=== PATIENT | male | born 1965 | race Caucasian/White ===

== ENCOUNTER 2019-08-23 00:56 | Observation (INO) | payer BC ==
--- NOTE | 2019-08-23 01:12 | ER Document Report ---
ED General - General Chief Complaint: Chest Pain Stated Complaint: CHEST PAIN Time Seen by Provider: 08/23/19 01:06 - HPI Notes: This is a 54-year-old gentleman who presents today with a complaint of left- sided chest pain described as sharp, nonradiating that started about 2 hours prior to presentation. He also describes significant trouble breathing and nonproductive cough. He denies any fever or chills. He denies any trauma. Symptoms are worse with exertion. Patient was given aspirin and nitroglycerin per EMS without any significant change in his symptoms. - Related Data Allergies/Adverse Reactions: No Known Allergies Allergy (Unverified 08/23/19 04:20) Past Medical History - Social History Smoking Status: Never Smoker Frequency of alcohol use: None Drug Abuse: None Family History: Hypertension Review of Systems - Review of Systems Cardiovascular: Chest pain, Dyspnea. denies: Palpitations, Heart racing Respiratory: Cough, Short of breath -: Yes All other systems reviewed and negative Physical Exam - Vital signs Vitals: Temp Pulse Ox 99.0 F 91 L 08/23/19 01:19 08/23/19 01:19 Interpretation: Hypoxic, Tachypneic - General General appearance: Alert In distress: Moderate - Respiratory Respiratory status: Respiratory distress, Labored Chest status: Accessory muscle use Breath sounds: Normal, Decreased air movement, Rales, Rhonchi Chest palpation: Normal - Cardiovascular Rhythm: Regular Heart sounds: Normal auscultation Murmur: No - Abdominal Inspection: Normal Distension: No distension Bowel sounds: Normal Tenderness: Nontender Organomegaly: No organomegaly - Extremities General upper extremity: Normal inspection, Nontender, Normal color, Normal ROM, Normal temperature General lower extremity: Normal inspection, Nontender, Edema - There is minimal peripheral edema., Normal color, Normal ROM, Normal temperature, Normal weight bearing. No: Elaine's sign - Neurological Neuro grossly intact: Yes Cognition: Normal Orientation: AAOx4 Hero Coma Scale Eye Opening: Spontaneous Galvin Coma Scale Verbal: Oriented Galvin Coma Scale Motor: Obeys Commands Hero Coma Scale Total: 15 Speech: Normal Motor strength normal: LUE, RUE, LLE, RLE Sensory: Normal - Psychological Associated symptoms: Normal affect, Normal mood Course - Re-evaluation Re-evalutation: 08/23/19 01:11 Differential diagnosis includes pneumonia versus CHF versus COPD. Doubt acute coronary syndrome with hypoxia and tachypnea. Pulmonary embolus is also high my differential is chest x-ray does not give me a good explanation. EKG shows normal sinus rhythm at 99 bpm. PVCs. Nonspecific T wave changes. No acute injury pattern. 0230 Patient reevaluated. Patient is doing better. 08/23/19 04:12 Patient reevaluated. Patient is doing much better on BiPAP. Respiratory rate improved significantly. Sats improved. Labs, and imaging reviewed and disc ussed with patient and family. He also discussed pulmonary nodule. She is scheduled discussed with Dr. Arnold. Will admit for pneumonia. - Vital Signs Vital signs: Temp Pulse Resp BP Pulse Ox 99.0 F 17 97 08/23/19 01:19 08/23/19 04:15 08/23/19 04:15 - Laboratory Result Diagrams: 08/23/19 01:02 08/23/19 01:02 Laboratory results interpreted by me: 08/23/19 08/23/19 08/23/19 01:02 01:02 01:02 WBC 15.3 H Absolute Neuts (auto) 11.6 H Carbonic Acid 1.00 L ABG pCO2 33.1 L ABG pO2 50.7 L ABG O2 Saturation 87.8 L BUN 26 H Glucose 142 H Alkaline Phosphatase 131 H Critical Care Note - Critical Care Note Total time excluding time spent on procedures (mins): 60 Comments: Critical care time for reevaluation and management of acute respiratory distress and hypoxic respiratory failure. Discharge - Discharge Clinical Impression: Acute respiratory failure with hypoxia Pneumonia Qualifiers: Pneumonia type: due to unspecified organism Laterality: left Lung location: lower lobe of lung Qualified Code(s): J18.1 - Lobar pneumonia, unspecified organism Condition: Stable Disposition: ADMITTED INPATIENT Admitting Provider: Clayton (Hospitalist) Unit Admitted: Telemetry
[2019-08-23] MEDS ORDERED: MORPHINE SULFATE 10 MG/ML INJ IV ONE (01:19)
[2019-08-23] MEDS ORDERED: AZITHROMYCIN INJ 500 MG VIAL IV ONE (01:26)
[2019-08-23] MEDS ORDERED: CEFTRIAXONE 1 GM/D5W RTU 1 GM/50 ML RTUPB IV ONE (01:26)
[2019-08-23 01:30] LABS: ABSOLUTE BASOPHILS # (AUTO) 0.1 10^3/uL (0.0-0.2); ABSOLUTE EOSINOPHILS # (AUTO) 0.3 10^3/uL (0.0-0.6); ABSOLUTE LYMPHOCYTES (AUTO) 2.5 10^3/uL (0.5-4.7); ABSOLUTE MONOCYTES (AUTO) 0.9 10^3/uL (0.1-1.4); ABSOLUTE NEUT (AUTO) 11.6 10^3/uL (1.7-8.2); BASOPHILS % (AUTO) 0.6 % (0-2); EOSINOPHILS % (AUTO) 1.6 % (0-6); HEMATOCRIT 40.9 % (37.9-51.0); HEMOGLOBIN 13.6 g/dL (13.5-17.0); MEAN CORPUSCULAR HEMOGLOBIN 30.6 pg (27.0-33.4); MEAN CORPUSCULAR HGB CONC 33.2 g/dL (32.0-36.0); MEAN CORPUSCULAR VOLUME 92 fl (80-97); MONOCYTES % (AUTO) 5.7 % (3-13); PLATELET COUNT 270 10^3/uL (150-450); RED BLOOD COUNT 4.45 10^6/uL (4.35-5.55); RED CELL DISTRIBUTION WIDTH 13.5 % (11.5-14.0); SEGMENTED NEUTROPHILS % (AUTO) 76.1 % (42-78); TOTAL CELLS COUNTED % (AUTO) 100 %; WHITE BLOOD COUNT 15.3 10^3/uL (4.0-10.5)
--- NOTE | 2019-08-23 01:49 | RADIOLOGY REPORT (SQ) ---
EXAM DESCRIPTION: [facility]: XR CHEST 1 VIEW CLINICAL HISTORY: 54 years Male, dyspnea COMPARISON: None. FINDINGS: There is an ill-defined alveolar interstitial density in the left lower lung field, with slight blunting of left costophrenic angle. Right lung is clear. No pneumothorax. Mediastinum is within normal limits for this positioning. Bony structures are unremarkable. IMPRESSION: 1. Left lower lobe infiltrate, suboptimally visualized, but suspicious for pneumonia. If clinical findings are equivocal, consider upright PA and lateral radiographs to confirm left lower lobe infiltrate.
[2019-08-23 01:53] LABS: ALBUMIN 4.3 g/dL (3.5-5.0); ALKALINE PHOSPHATASE 131 U/L (38-126); ANION GAP 10 (5-19); ASPARTATE AMINO TRANSFERASE 29 U/L (17-59); BILIRUBIN,DIRECT 0.1 mg/dL (0.0-0.4); BILIRUBIN,TOTAL 0.5 mg/dL (0.2-1.3); BLOOD UREA NITROGEN 26 mg/dL (7-20); CALCIUM 9.3 mg/dL (8.4-10.2); CARBON DIOXIDE 26 mmol/L (22-30); CHLORIDE 105 mmol/L (98-107); CREATINE KINASE 70 U/L (55-170); GLUCOSE 142 mg/dL (75-110); POTASSIUM 4.1 mmol/L (3.6-5.0); TOTAL PROTEIN 7.7 g/dL (6.3-8.2)
[2019-08-23 01:55] LABS: ARTERIAL BLOOD FIO2 4L; ARTERIAL BLOOD HCO3 22.3 mmol/L (20-24); ARTERIAL BLOOD O2 SATURATION 87.8 % (94-98); ARTERIAL BLOOD PCO2 33.1 mmHg (35-45); ARTERIAL BLOOD PH 7.45 (7.35-7.45); ARTERIAL BLOOD PO2 50.7 mmHg (80-100); ARTERIAL BLOOD TOTAL CO2 23.3 mmol/L (23-27)
[2019-08-23 02:12] LABS: CREATINE KINASE MB 0.29 ng/mL (<4.55); NT PRO BNP 69 pg/mL (5-900)
[2019-08-23 02:13] LABS: TROPONIN I < 0.012 ng/mL
--- NOTE | 2019-08-23 03:51 | RADIOLOGY REPORT (SQ) ---
EXAM DESCRIPTION: CT CHEST ANGIOGRAPHY WITHOUT THEN WITH IV CONTRAST COMPLETED DATE/TME: 08/23/2019 02:03 CLINICAL HISTORY: 54 years Male, pleuritic chest pain , hypoxia ? PE Comparison: CR, same day. Technique: IV contrast. Coronal and sagittal reformat. 3d reconstruction. This exam was performed according to our departmental dose-optimization program, which includes automated exposure control, adjustment of the mA and/or kV according to patient size and/or use of iterative reconstruction technique.[facility]: Dose Right [facility]: CareDose [facility]: Dose Right [facility]: Teradose 4D [facility]: [employer] LIMITATIONS: None Findings: No pulmonary embolus. No right ventricular strain. Small consolidative opacity of the lung bases, left more than right. 1.3 cm nodular opacity of the right lower lobe. Degenerative disc disease. Likely benign renal cyst(s), not definitively characterized. Splenules. Inferior neck, axillae, mediastinum, airway, lymphatics, heart, vasculature, upper abdomen, and musculoskeleton appear otherwise unremarkable. Impression: Small consolidative and nodular opacities of the lower lungs, including a 1.3 cm nodular lesion of the right lower lobe. Differential etiologies include infectious, inflammatory, and neoplastic processes. Recommend CR/CT surveillance including at 7-12 weeks following initiation of any clinically warranted therapy.
[2019-08-23] MEDS ORDERED: IPRATROPIUM/ALBUTEROL 0.5-2.5 MG/3 ML AMPUL NEB PRN (04:10)
[2019-08-23] MEDS ORDERED: CHLORPHENIRAMINE MALEATE 4 MG TABLET PO SCH (04:15)
[2019-08-23] MEDS ORDERED: FLUTICASONE NASAL SPRAY 50 MCG/SPRY 120 SPRAY/16 GM ONE (05:19)
[2019-08-23] MEDS: FLUTICASONE NASAL SPRAY 50 MCG/SPRY 120 SPRAY/16 GM NASL SCH ×2 (05:36→18:07)
[2019-08-23] MEDS: HEPARIN SOD (PORCINE) 5,000 UNIT/ML 1 ML VIAL SUBCUT SCH ×3 (05:37→22:38)
--- NOTE | 2019-08-23 06:07 | PDOC H&P ---
History of Present Illness Admission Date/PCP: 08/23/19 04:27 Patient complains of: Shortness of breath History of Present Illness: HECTOR PABLO is a 54 year old male with a past medical history of hypertension and tobacco dependence presents with abrupt onset of shortness of breath and pleuritic and left-sided chest wall pain. He had no preceding rhinorrhea, sore throat, acid reflux or fever. In the emergency room is found to have tachypnea with retractions, hypoxia relieved by BiPAP and oxygen, CTA is negative for PE with a bibasilar infiltrates and a right sided 1.3 cm nodule. He started on empiric antibiotics and referred to the hospitalist for admission. He denies previous pneumonia, infectious contacts or recent antibiotic use. Past Medical History Cardiac Medical History: Reports: Hypertension Psychiatric Medical History: Reports: Tobacco Dependency Social History Information Source: Patient Lives with: Spouse/Significant other Smoking Status: Current Some Day Smoker Number of Years Smokin Frequency of Alcohol Use: None Drugs: None - Advance Directive Resuscitation Status: Full Code Family History Family History: COPD, Hypertension Parental Family History Reviewed: Yes Children Family History Reviewed: Yes Sibling(s) Family History Reviewed.: Yes Medication/Allergy Allergies/Adverse Reactions: No Known Allergies Allergy (Unverified 08/23/19 04:20) Review of Systems Constitutional: ABSENT: chills, fever(s), headache(s), weight gain, weight loss Eyes: ABSENT: visual disturbances Ears: ABSENT: hearing changes Cardiovascular: ABSENT: chest pain, dyspnea on exertion, edema, orthropnea, palpitations Respiratory: ABSENT: cough, hemoptysis Gastrointestinal: ABSENT: abdominal pain, constipation, diarrhea, hematemesis, hematochezia, nausea, vomiting Genitourinary: ABSENT: dysuria, hematuria Musculoskeletal: ABSENT: joint swelling Integumentary: ABSENT: rash, wounds Neurological: ABSENT: abnormal gait, abnormal speech, confusion, dizziness, focal weakness, syncope Psychiatric: ABSENT: anxiety, depression, homidical ideation, suicidal ideation Endocrine: ABSENT: cold intolerance, heat intolerance, polydipsia, polyuria Hematologic/Lymphatic: ABSENT: easy bleeding, easy bruising Physical Exam Vital Signs: Temp Pulse Resp BP Pulse Ox 99.0 F 15 119/82 97 08/23/19 01:19 08/23/19 05:01 08/23/19 05:00 08/23/19 05:01 Intake & Output 08/21/19 08/22/19 08/23/19 11:59 11:59 11:59 Intake Total 50 Balance 50 Weight 95.6 kg General appearance: PRESENT: cooperative, mild distress, well-developed, well-nourished Head exam: PRESENT: atraumatic, normocephalic Eye exam: PRESENT: conjunctiva pink, EOMI, PERRLA. ABSENT: scleral icterus Ear exam: PRESENT: normal external ear exam Mouth exam: PRESENT: moist, tongue midline Neck exam: ABSENT: carotid bruit, JVD, lymphadenopathy, thyromegaly Respiratory exam: PRESENT: accessory muscle use, crackles, symmetrical. ABSENT: rales, rhonchi, stridor, wheezes Cardiovascular exam: PRESENT: RRR. ABSENT: diastolic murmur, rubs, systolic murmur Pulses: PRESENT: normal dorsalis pedis pul Vascular exam: PRESENT: normal capillary refill GI/Abdominal exam: PRESENT: normal bowel sounds, soft. ABSENT: distended, guarding, mass, organolmegaly, rebound, tenderness Rectal exam: PRESENT: deferred Extremities exam: PRESENT: full ROM. ABSENT: calf tenderness, clubbing, pedal edema Neurological exam: PRESENT: alert, awake, oriented to person, oriented to place, oriented to time, oriented to situation, CN II-XII grossly intact. ABSENT: motor sensory deficit Psychiatric exam: PRESENT: appropriate affect, normal mood. ABSENT: homicidal ideation, suicidal ideation Skin exam: PRESENT: dry, intact, warm. ABSENT: cyanosis, rash Results Laboratory Results: 08/23/19 01:02 08/23/19 01:02 08/23/19 08/23/19 08/23/19 01:02 01:02 01:02 WBC 15.3 H RBC 4.45 Hgb 13.6 Hct 40.9 MCV 92 MCH 30.6 MCHC 33.2 RDW 13.5 Plt Count 270 Seg Neutrophils % 76.1 Carbonic Acid 1.00 L HCO3/H2CO3 Ratio 22:1 ABG pH 7.45 ABG pCO2 33.1 L ABG pO2 50.7 L ABG HCO3 22.3 ABG O2 Saturation 87.8 L ABG Base Excess -1.0 FiO2 4L Sodium 141.3 Potassium 4.1 Chloride 105 Carbon Dioxide 26 Anion Gap 10 BUN 26 H Creatinine 1.13 Est GFR ( Amer) > 60 Glucose 142 H Lactic Acid Calcium 9.3 Total Bilirubin 0.5 AST 29 Alkaline Phosphatase 131 H Total Protein 7.7 Albumin 4.3 08/23/19 01:45 WBC RBC Hgb Hct MCV MCH MCHC RDW Plt Count Seg Neutrophils % Carbonic Acid HCO3/H2CO3 Ratio ABG pH ABG pCO2 ABG pO2 ABG HCO3 ABG O2 Saturation ABG Base Excess FiO2 Sodium Potassium Chloride Carbon Dioxide Anion Gap BUN Creatinine Est GFR ( Amer) Glucose Lactic Acid 1.0 Calcium Total Bilirubin AST Alkaline Phosphatase Total Protein Albumin 08/23/19 08/23/19 01:02 01:02 Creatine Kinase 70 CK-MB (CK-2) 0.29 Troponin I < 0.012 NT-Pro-B Natriuret Pep 69 Impressions: Chest X-Ray 08/23/19 01:07 IMPRESSION: 1. Left lower lobe infiltrate, suboptimally visualized, but suspicious for pneumonia. If clinical findings are equivocal, consider upright PA and lateral radiographs to confirm left lower lobe infiltrate. Assessment and Plan - Diagnosis (1) Pneumonia Qualifiers: Pneumonia type: due to unspecified organism Laterality: left Lung location: lower lobe of lung Qualified Code(s): J18.1 - Lobar pneumonia, unspecified organism Is this a current diagnosis for this admission?: Yes Plan: Pneumonia care set deployed, BiPAP, empiric antibiotic, incentive spirometry, flutter valve. Follow-up CBC and blood culture (2) Lung nodule Is this a current diagnosis for this admission?: Yes Plan: Concerning given tobacco history. Follow-up chest CT 6 to 8 weeks, consider pulmonology consult (3) Tobacco abuse Is this a current diagnosis for this admission?: Yes Plan: tobacco cessation counseling, and nicotine replacement options discussed (4) Acute respiratory failure with hypoxia Is this a current diagnosis for this admission?: Yes Plan: Secondary to #1, consider repeat ABG - Time Time Spent with patient: 35 or more minutes - Inpatient Certification Medical Necessity: Need Close Monitoring Due to Risk of Patient Decompensation
[2019-08-23] MEDS: KETOROLAC TROMETHAMINE INJ/PF 30 MG/1 ML SDV IV PRN (06:40)
[2019-08-23 06:54] LABS: CREATINE KINASE MB 0.72 ng/mL (<4.55)
[2019-08-23 06:56] LABS: TROPONIN I < 0.012 ng/mL
[2019-08-23] MEDS: IPRATROPIUM/ALBUTEROL 0.5-2.5 MG/3 ML AMPUL NEB SCH ×3 (07:56→19:51)
[2019-08-23] MEDS ORDERED: KETOROLAC TROMETHAMINE INJ/PF 30 MG/1 ML SDV IV PRN (07:59)
[2019-08-23] MEDS: NICOTINE 14 MG/24 HR PATCH.TD24 TD SCH ×2 (09:26→11:11)
[2019-08-23] MEDS: LEVOFLOXACIN 750 MG/D5W RTU 750 MG/150 ML RTUPB IV SCH (09:26)
[2019-08-23] MEDS: OXYCODONE-ACETAMINOPHEN 5-325 MG TABLET PO PRN ×2 (11:13→18:05)
[2019-08-23] MEDS: NORMAL SALINE 1000 ML 1,000 ML IV PRN ×2 (11:30→16:05)
[2019-08-23] MEDS ORDERED: LIDOCAINE 5% (700 MG) TRANSDERMAL ADH..PATCH TP ONE (12:00)
[2019-08-23] MEDS: METHYLPREDNISOLONE INJ 40 MG/1 ML SDV IV SCH ×2 (12:11→22:38)
[2019-08-23] MEDS: CHLORPHENIRAMINE MALEATE 4 MG TABLET PO SCH ×3 (12:12→23:47)
[2019-08-23 12:32] LABS: CREATINE KINASE MB 0.78 ng/mL (<4.55)
[2019-08-23 12:35] LABS: TROPONIN I < 0.012 ng/mL
[2019-08-23 19:14] LABS: TROPONIN I < 0.012 ng/mL
[2019-08-23] MEDS: CEFTRIAXONE 1 GM/D5W RTU 1 GM/50 ML RTUPB IV SCH (22:38)
--- NOTE | 2019-08-24 00:46 | EKG REPORT ---
SEVERITY:- ABNORMAL ECG - SINUS TACHYCARDIA MULTIPLE VENTRICULAR PREMATURE COMPLEXES BORDERLINE T ABNORMALITIES, INFERIOR LEADS : Confirmed by: Rao Arce 24-Aug-2019 00:45:57
[2019-08-24] MEDS: IPRATROPIUM/ALBUTEROL 0.5-2.5 MG/3 ML AMPUL NEB SCH ×4 (01:55→20:33)
[2019-08-24 04:50] LABS: HEMATOCRIT 36.5 % (37.9-51.0); HEMOGLOBIN 12.5 g/dL (13.5-17.0); MEAN CORPUSCULAR HEMOGLOBIN 31.2 pg (27.0-33.4); MEAN CORPUSCULAR HGB CONC 34.3 g/dL (32.0-36.0); MEAN CORPUSCULAR VOLUME 91 fl (80-97); PLATELET COUNT 202 10^3/uL (150-450); RED BLOOD COUNT 4.02 10^6/uL (4.35-5.55); RED CELL DISTRIBUTION WIDTH 13.2 % (11.5-14.0); WHITE BLOOD COUNT 17.7 10^3/uL (4.0-10.5)
[2019-08-24 05:07] LABS: ANION GAP 8 (5-19); BLOOD UREA NITROGEN 18 mg/dL (7-20); CALCIUM 8.7 mg/dL (8.4-10.2); CARBON DIOXIDE 22 mmol/L (22-30); CHLORIDE 109 mmol/L (98-107); GLUCOSE 167 mg/dL (75-110); POTASSIUM 4.2 mmol/L (3.6-5.0)
[2019-08-24] MEDS: OXYCODONE-ACETAMINOPHEN 5-325 MG TABLET PO PRN ×2 (05:13→12:46)
[2019-08-24] MEDS: KETOROLAC TROMETHAMINE INJ/PF 30 MG/1 ML SDV IV PRN (05:13)
[2019-08-24] MEDS: HEPARIN SOD (PORCINE) 5,000 UNIT/ML 1 ML VIAL SUBCUT SCH ×3 (05:17→22:47)
[2019-08-24] MEDS: FLUTICASONE NASAL SPRAY 50 MCG/SPRY 120 SPRAY/16 GM NASL SCH ×2 (05:17→17:04)
[2019-08-24] MEDS: METHYLPREDNISOLONE INJ 40 MG/1 ML SDV IV SCH ×2 (09:18→22:47)
[2019-08-24] MEDS: LEVOFLOXACIN 750 MG/D5W RTU 750 MG/150 ML RTUPB IV SCH (09:19)
[2019-08-24] MEDS: NICOTINE 14 MG/24 HR PATCH.TD24 TD SCH (09:20)
--- NOTE | 2019-08-24 12:27 | PDOC PROGRESS REPORT ---
Subjective Progress Note for:: 08/24/19 Subjective:: HECTOR PABLO is a 54 year old male with a past medical history of hypertension and tobacco dependence presents with abrupt onset of shortness of breath and pleuritic and left-sided chest wall pain. He had no preceding rhinorrhea, sore throat, acid reflux or fever. In the emergency room is found to have tachypnea with retractions, hypoxia relieved by BiPAP and oxygen, CTA is negative for PE with a bibasilar infiltrates and a right sided 1.3 cm nodule. He started on empiric antibiotics and referred to the hospitalist for admission. He denies previous pneumonia, infectious contacts or recent antibiotic use. 08/24/2019. No acute events overnight. SPO2 WNL on 3-4 L. Patient is stating that he is feeling much better still complaining of left-sided pleuritic chest pain and left-sided abdominal pain which is relieved with Toradol and topical lidocaine patch. Denies any shortness of breath, nausea, vomiting, diarrhea, constipation or any urinary symptoms. P.o. tolerant, having normal bowel and bladder movements. Reason For Visit: PNUEMONIA Physical Exam Vital Signs: Temp Pulse Resp BP Pulse Ox 97.6 F 95 18 134/70 H 96 08/24/19 08:38 08/24/19 08:38 08/24/19 08:38 08/24/19 08:38 08/24/19 08:38 Intake & Output 08/23/19 08/24/19 08/25/19 06:59 06:59 06:59 Intake Total 50 2798 150 Output Total 1375 Balance 50 1423 150 Weight 95.6 kg 98.3 kg General appearance: PRESENT: no acute distress, obese, well-developed, well- nourished Head exam: PRESENT: atraumatic, normocephalic Eye exam: PRESENT: conjunctiva pink, EOMI, PERRLA. ABSENT: scleral icterus Ear exam: PRESENT: normal external ear exam Mouth exam: PRESENT: moist, tongue midline Neck exam: ABSENT: carotid bruit, JVD, lymphadenopathy, thyromegaly Respiratory exam: PRESENT: clear to auscultation cher. ABSENT: rales, rhonchi, wheezes Cardiovascular exam: PRESENT: RRR. ABSENT: diastolic murmur, rubs, systolic murmur Pulses: PRESENT: normal dorsalis pedis pul Vascular exam: PRESENT: normal capillary refill GI/Abdominal exam: PRESENT: normal bowel sounds, soft. ABSENT: distended, guarding, mass, organolmegaly, rebound, tenderness Rectal exam: PRESENT: deferred Extremities exam: PRESENT: full ROM. ABSENT: calf tenderness, clubbing, pedal edema Neurological exam: PRESENT: alert, awake, oriented to person, oriented to place, oriented to time, oriented to situation, CN II-XII grossly intact. ABSENT: motor sensory deficit Psychiatric exam: PRESENT: appropriate affect, normal mood. ABSENT: homicidal ideation, suicidal ideation Skin exam: PRESENT: dry, intact, warm. ABSENT: cyanosis, rash Results Laboratory Results: 08/24/19 04:37 08/24/19 04:37 08/24/19 08/24/19 04:37 04:37 WBC 17.7 H RBC 4.02 L Hgb 12.5 L Hct 36.5 L MCV 91 MCH 31.2 MCHC 34.3 RDW 13.2 Plt Count 202 Sodium 138.9 Potassium 4.2 Chloride 109 H Carbon Dioxide 22 Anion Gap 8 BUN 18 Creatinine 0.84 Est GFR ( Amer) > 60 Glucose 167 H Calcium 8.7 08/23/19 08/23/19 08/23/19 01:02 01:02 05:57 Creatine Kinase 70 80 CK-MB (CK-2) 0.29 Troponin I < 0.012 NT-Pro-B Natriuret Pep 69 08/23/19 08/23/19 08/23/19 06:08 11:52 11:52 Creatine Kinase 95 CK-MB (CK-2) 0.72 0.78 Troponin I < 0.012 < 0.012 NT-Pro-B Natriuret Pep 08/23/19 08/23/19 18:18 18:18 Creatine Kinase 99 CK-MB (CK-2) 0.80 Troponin I < 0.012 NT-Pro-B Natriuret Pep Impressions: Chest X-Ray 08/23/19 01:07 IMPRESSION: 1. Left lower lobe infiltrate, suboptimally visualized, but suspicious for pneumonia. If clinical findings are equivocal, consider upright PA and lateral radiographs to confirm left lower lobe infiltrate. Assessment and Plan - Diagnosis (1) Acute respiratory failure with hypoxia Is this a current diagnosis for this admission?: Yes Plan: Significant improvement. In no acute respiratory distress as opposed to yesterday. SPO2 low 90s on 3-4 L nasal cannula. Likely community-acquired pneumonia caused by gram positives complicated by underlying history of chronic smoking. CXR on admission positive for left lower lobe infiltrate. Day 3 IV antibiotics. Day 3 IV ceftriaxone. Day 2 IV levofloxacin. Day 2 IV steroids. Received 1 day of azithromycin. Patient is still hypoxic on room air, CBC CMP WNL, cultures no growth so far. Continue IV antibiotics for another day, switch to p.o. tomorrow, continue duo nebs, incentive spirometer, flutter valve, BiPAP as needed, IV steroids. Possible discharge tomorrow. Needs to be evaluated for home oxygen. (2) Lung nodule Is this a current diagnosis for this admission?: Yes Plan: Concerning given tobacco history. Follow-up chest CT 6 to 8 weeks, consider pulmonology consult Patient updated and counseled about close follow-up of pulmonary nodule given his history of chronic smoking. Patient voiced understanding. Outpatient pulmonology and PCP follow-up. (3) Pneumonia Qualifiers: Pneumonia type: due to unspecified organism Laterality: left Lung location: lower lobe of lung Qualified Code(s): J18.1 - Lobar pneumonia, unspecified organism Is this a current diagnosis for this admission?: Yes Plan: As per #1. (4) Tobacco abuse Is this a current diagnosis for this admission?: Yes Plan: Counseled on quitting. NicoDerm patch provided.
[2019-08-24] MEDS: LIDOCAINE 5% (700 MG) TRANSDERMAL ADH..PATCH TP SCH (14:12)
[2019-08-24] MEDS: DOCUSATE SODIUM 100 MG CAPSULE PO SCH ×2 (14:12→17:04)
[2019-08-24] MEDS: AMLODIPINE BESYLATE 2.5 MG TABLET PO SCH (14:12)
[2019-08-24] MEDS ORDERED: PHARMACY COMMUNICATION ORDER MC SCH (22:00)
[2019-08-24] MEDS: CEFTRIAXONE 1 GM/D5W RTU 1 GM/50 ML RTUPB IV SCH (22:46)
[2019-08-25] MEDS: IPRATROPIUM/ALBUTEROL 0.5-2.5 MG/3 ML AMPUL NEB SCH ×3 (02:04→13:52)
[2019-08-25 05:36] LABS: HEMATOCRIT 36.5 % (37.9-51.0); HEMOGLOBIN 12.2 g/dL (13.5-17.0); MEAN CORPUSCULAR HEMOGLOBIN 30.8 pg (27.0-33.4); MEAN CORPUSCULAR HGB CONC 33.6 g/dL (32.0-36.0); MEAN CORPUSCULAR VOLUME 92 fl (80-97); PLATELET COUNT 217 10^3/uL (150-450); RED BLOOD COUNT 3.98 10^6/uL (4.35-5.55); RED CELL DISTRIBUTION WIDTH 13.7 % (11.5-14.0); WHITE BLOOD COUNT 18.8 10^3/uL (4.0-10.5)
[2019-08-25 05:51] LABS: ALBUMIN 3.4 g/dL (3.5-5.0); ALKALINE PHOSPHATASE 98 U/L (38-126); ANION GAP 7 (5-19); ASPARTATE AMINO TRANSFERASE 22 U/L (17-59); BILIRUBIN,DIRECT 0.1 mg/dL (0.0-0.4); BILIRUBIN,TOTAL 0.2 mg/dL (0.2-1.3); BLOOD UREA NITROGEN 23 mg/dL (7-20); CALCIUM 8.9 mg/dL (8.4-10.2); CARBON DIOXIDE 23 mmol/L (22-30); CHLORIDE 109 mmol/L (98-107); GLUCOSE 177 mg/dL (75-110); POTASSIUM 4.5 mmol/L (3.6-5.0); TOTAL PROTEIN 6.4 g/dL (6.3-8.2)
[2019-08-25 06:11] LABS: ABSOLUTE LYMPHOCYTES# (MANUAL) 0.9 10^3/uL (0.5-4.7); ABSOLUTE MONOCYTES # (MANUAL) 0.2 10^3/uL (0.1-1.4); BASOPHILS % (MANUAL) 0 % (0-2); EOSINOPHILS % (MANUAL) 0 % (0-6); LYMPHOCYTES % (MANUAL) 5 % (13-45); MONOCYTES % (MANUAL) 1 % (3-13); SEGMENTED NEUTROPHILS % (MAN) 94 % (42-78); TOTAL CELLS COUNTED 100
[2019-08-25 06:12] LABS: PLATELET COMMENT ADEQUATE; RBC MORPHOLOGY COMMENT NORMO-CYTIC/CHROMIC
[2019-08-25] MEDS: FLUTICASONE NASAL SPRAY 50 MCG/SPRY 120 SPRAY/16 GM NASL SCH (06:35)
[2019-08-25] MEDS: HEPARIN SOD (PORCINE) 5,000 UNIT/ML 1 ML VIAL SUBCUT SCH (06:36)
[2019-08-25] MEDS: LEVOFLOXACIN 750 MG/D5W RTU 750 MG/150 ML RTUPB IV SCH (08:56)
[2019-08-25] MEDS ORDERED: INFLUENZA QUAD (6MOS+) 2019-20 VAC 0.5 ML SYR IM ONE (09:25)
[2019-08-25] MEDS: DOCUSATE SODIUM 100 MG CAPSULE PO SCH (09:33)
[2019-08-25] MEDS: NICOTINE 14 MG/24 HR PATCH.TD24 TD SCH (09:33)
[2019-08-25] MEDS: AMLODIPINE BESYLATE 2.5 MG TABLET PO SCH (09:33)
[2019-08-25] MEDS: METHYLPREDNISOLONE INJ 40 MG/1 ML SDV IV SCH (09:33)
[2019-08-25] MEDS: LIDOCAINE 5% (700 MG) TRANSDERMAL ADH..PATCH TP SCH (09:34)
--- NOTE | 2019-08-25 12:17 | PDOC DISCHARGE SUMMARY ---
Impression - Admit/DC Date/PCP Admission Date/Primary Care Provider: 08/23/19 04:27 Discharge Date: 08/25/19 - Discharge Diagnosis (1) Acute respiratory failure with hypoxia Is this a current diagnosis for this admission?: Yes (2) Lung nodule Is this a current diagnosis for this admission?: Yes (3) Pneumonia Is this a current diagnosis for this admission?: Yes (4) Tobacco abuse Is this a current diagnosis for this admission?: Yes - Additional Information Resuscitation Status: Full Code Discharge Diet: As Tolerated Discharge Activity: Activity As Tolerated Referrals: DEEPA MINOR MD [ACTIVE STAFF] - 09/16/19 2:00 pm DESTINI RYAN MD [COMMUNITY BASED STAFF] - 09/07/19 1:30 pm () Prescriptions: Cefuroxime Axetil [Ceftin 500 mg Tablet] 500 mg PO BID 7 Days #14 tablet Prednisone [Deltasone 20 mg Tablet] 40 mg PO DAILY 5 Days #10 tablet Fluticasone Propionate [Flonase Nasal [place] 50 Mcg/[place] 16 gm] 1 spray NASL Q12 #1 inhaler Levofloxacin [Levaquin 750 mg Tablet] 750 mg PO DAILY #5 tablet Nicotine [Nicoderm 14 mg/24 Hr Transdermal Patch] 1 patch TD DAILY #30 patch.td24 Home Medications: Amlodipine Besylate [Norvasc 10 mg Tablet] 10 mg PO DAILY 08/23/19 Cefuroxime Axetil [Ceftin 500 mg Tablet] 500 mg PO BID 7 Days #14 tablet 08/25/19 Fluticasone Propionate [Flonase Nasal [place] 50 Mcg/[place] 16 gm] 1 spray NASL Q12 #1 inhaler 08/25/19 Fluticasone Propionate [Flonase Nasal [place] 50 Mcg/[place] 16 gm] 2 spray NASL Q12A spray.pump 08/25/19 Levofloxacin [Levaquin 750 mg Tablet] 750 mg PO DAILY #5 tablet 08/25/19 Nicotine [Nicoderm 14 mg/24 Hr Transdermal Patch] 1 each TD DAILY patch.td24 08/25/19 Nicotine [Nicoderm 14 mg/24 Hr Transdermal Patch] 1 patch TD DAILY #30 patch.td24 08/25/19 Prednisone [Deltasone 20 mg Tablet] 40 mg PO DAILY 5 Days #10 tablet 08/25/19 History of Present Illiness History of Present Illness: HECTOR PABLO is a 54 year old male with a history of hypertension and tobacco dependence. He experienced abrupt onset shortness of breath with pleuritic chest pain. He required BiPAP therapy with oxygen supplementation. He had an elevated white blood cell count as well. CT angiogram was negative for a pulmonary embolus however did show consolidation. He was started on antibiotics and referred to the hospital service for admission. Hospital Course Hospital Course: The patient had a fairly uneventful hospital course. With antibiotic therapy and nebulizer treatments as well as BiPAP he began to improve. Within 48 hours he weaned from the BiPAP as well as oxygen therapy. There was a 1.3 cm nodule noted on his CT scan. He will follow-up with pulmonology for additional work- up. His breathing is comfortable and the pleuritic chest pain has dissipated. He will discharged home on dual antibiotic therapy. He is encouraged to stop smoking and nicotine patch prescription was sent to the pharmacy in addition to the antibiotics and Flonase. Physical Exam Vital Signs: Temp Pulse Resp BP Pulse Ox 98.3 F 83 16 136/77 H 88 L 08/25/19 04:25 08/25/19 08:00 08/25/19 08:00 08/25/19 04:25 08/25/19 08:00 Intake & Output 08/24/19 08/25/19 08/26/19 06:59 06:59 06:59 Intake Total 2798 2575 150 Output Total 1375 300 Balance 1423 2275 150 Weight 98.3 kg 99.8 kg General appearance: PRESENT: no acute distress, cooperative, well-developed Head exam: PRESENT: atraumatic, normocephalic Eye exam: PRESENT: conjunctiva pink. ABSENT: scleral icterus Ear exam: PRESENT: normal external ear exam. ABSENT: bleeding, drainage Mouth exam: PRESENT: moist, tongue midline Respiratory exam: PRESENT: rhonchi - Right base, symmetrical, unlabored. ABSENT: accessory muscle use, rales, tachypnea, wheezes Cardiovascular exam: PRESENT: RRR, +S1, +S2 GI/Abdominal exam: PRESENT: normal bowel sounds, soft. ABSENT: distended, tenderness Rectal exam: PRESENT: deferred Extremities exam: ABSENT: calf tenderness, joint swelling, pedal edema Musculoskeletal exam: PRESENT: ambulatory, normal inspection Neurological exam: PRESENT: alert, awake, oriented to person, oriented to place, oriented to time, oriented to situation, CN II-XII grossly intact Psychiatric exam: PRESENT: appropriate affect. ABSENT: agitated, anxious Focused psych exam: ABSENT: delusional, restlessness Skin exam: PRESENT: dry, normal color, warm. ABSENT: rash Results Laboratory Results: WBC 18.8 10^3/uL (4.0-10.5) H 08/25/19 05:21 RBC 3.98 10^6/uL (4.35-5.55) L 08/25/19 05:21 Hgb 12.2 g/dL (13.5-17.0) L 08/25/19 05:21 Hct 36.5 % (37.9-51.0) L 08/25/19 05:21 MCV 92 fl (80-97) 08/25/19 05:21 MCH 30.8 pg (27.0-33.4) 08/25/19 05:21 MCHC 33.6 g/dL (32.0-36.0) 08/25/19 05:21 RDW 13.7 % (11.5-14.0) 08/25/19 05:21 Plt Count 217 10^3/uL (150-450) 08/25/19 05:21 Lymph % (Auto) Not Reportable 08/25/19 05:21 [place] % (Auto) Not Reportable 08/25/19 05:21 Eos % (Auto) Not Reportable 08/25/19 05:21 Baso % (Auto) Not Reportable 08/25/19 05:21 Absolute Neuts (auto) Not Reportable 08/25/19 05:21 Absolute Lymphs (auto) Not Reportable 08/25/19 05:21 Absolute Monos (auto) Not Reportable 08/25/19 05:21 Absolute Eos (auto) Not Reportable 08/25/19 05:21 Absolute Basos (auto) Not Reportable 08/25/19 05:21 Total Counted 100 08/25/19 05:21 Seg Neutrophils % Not Reportable 08/25/19 05:21 Seg Neuts % (Manual) 94 % (42-78) H 08/25/19 05:21 Lymphocytes % (Manual) 5 % (13-45) L 08/25/19 05:21 Monocytes % (Manual) 1 % (3-13) L 08/25/19 05:21 Eosinophils % (Manual) 0 % (0-6) 08/25/19 05:21 Basophils % (Manual) 0 % (0-2) 08/25/19 05:21 Abs Neuts (Manual) 17.7 10^3/uL (1.7-8.2) H 08/25/19 05:21 Abs Lymphs (Manual) 0.9 10^3/uL (0.5-4.7) 08/25/19 05:21 Abs Monocytes (Manual) 0.2 10^3/uL (0.1-1.4) 08/25/19 05:21 Absolute Eos (Manual) 0.0 10^3/uL (0.0-0.6) 08/25/19 05:21 Abs Basophils (Manual) 0.0 10^3/uL (0.0-0.2) 08/25/19 05:21 Platelet Comment ADEQUATE 08/25/19 05:21 RBC Morph Comment NORMO-CYTIC/CHROMIC 08/25/19 05:21 Carbonic Acid 1.00 mmol/L (1.05-1.35) L 08/23/19 01:02 HCO3/H2CO3 Ratio 22:1 08/23/19 01:02 ABG pH 7.45 (7.35-7.45) 08/23/19 01:02 ABG pCO2 33.1 mmHg (35-45) L 08/23/19 01:02 ABG pO2 50.7 mmHg (80-100) L 08/23/19 01:02 ABG HCO3 22.3 mmol/L (20-24) 08/23/19 01:02 ABG Total CO2 23.3 mmol/L (23-27) 08/23/19 01:02 ABG O2 Saturation 87.8 % (94-98) L 08/23/19 01:02 ABG Base Excess -1.0 mmol/L 08/23/19 01:02 FiO2 4L 08/23/19 01:02 Sodium 139.2 mmol/L (137-145) 08/25/19 05:21 Potassium 4.5 mmol/L (3.6-5.0) 08/25/19 05:21 Chloride 109 mmol/L (98-107) H 08/25/19 05:21 Carbon Dioxide 23 mmol/L (22-30) 08/25/19 05:21 Anion Gap 7 (5-19) 08/25/19 05:21 BUN 23 mg/dL (7-20) H 08/25/19 05:21 Creatinine 1.01 mg/dL (0.52-1.25) 08/25/19 05:21 Est GFR ( Amer) > 60 (>60) 08/25/19 05:21 Est GFR (MDRD) Non-Af > 60 (>60) 08/25/19 05:21 Glucose 177 mg/dL (75-110) H 08/25/19 05:21 Lactic Acid 1.0 mmol/L (0.7-2.1) 08/23/19 01:45 Calcium 8.9 mg/dL (8.4-10.2) 08/25/19 05:21 Total Bilirubin 0.2 mg/dL (0.2-1.3) 08/25/19 05:21 Direct Bilirubin 0.1 mg/dL (0.0-0.4) 08/25/19 05:21 Neonat Total Bilirubin Not Reportable 08/25/19 05:21 Neonat Direct Bilirubin Not Reportable 08/25/19 05:21 Neonat Indirect Bili Not Reportable 08/25/19 05:21 AST 22 U/L (17-59) 08/25/19 05:21 ALT 18 U/L (<50) 08/25/19 05:21 Alkaline Phosphatase 98 U/L (38-126) 08/25/19 05:21 Creatine Kinase 99 U/L (55-170) 08/23/19 18:18 CK-MB (CK-2) 0.80 ng/mL (<4.55) 08/23/19 18:18 Troponin I < 0.012 ng/mL 08/23/19 18:18 NT-Pro-B Natriuret Pep 69 pg/mL (5-900) 08/23/19 01:02 Total Protein 6.4 g/dL (6.3-8.2) 08/25/19 05:21 Albumin 3.4 g/dL (3.5-5.0) L 08/25/19 05:21 09/29/19 09/29/19 09/29/19 01:02 06:08 11:52 CK-MB (CK-2) 0.29 0.72 0.78 Troponin I < 0.012 < 0.012 < 0.012 NT-Pro-B Natriuret Pep 69 08/23/19 18:18 CK-MB (CK-2) 0.80 Troponin I < 0.012 NT-Pro-B Natriuret Pep Impressions: Chest X-Ray 08/23/19 01:07 IMPRESSION: 1. Left lower lobe infiltrate, suboptimally visualized, but suspicious for pneumonia. If clinical findings are equivocal, consider upright PA and lateral radiographs to confirm left lower lobe infiltrate. Plan Health Concerns: Definitely concerned about the new pulmonary nodule. Smoking cessation would be optimal. Plan of Treatment: Complete antibiotics as ordered. Continue nicotine patch to supplant smoking. Follow-up with pulmonology to further work-up new pulmonary nodule. Goals: Stop smoking and improve any underlying chronic lung disease. Time Spent: Greater than 30 Minutes Stroke Is this a Stroke Patient?: No Acute Heart Failure - Is this a Heart Failure Patient?: No
[2019-08-25 13:59] VITALS: BP 148/86
== END 2019-08-25 15:25 | disposition home or self-care (01) ==
LOC: ER 00:56 → EH 04:27 → INTOOBSV 04:27 → 3S 07:10
PROVIDERS: ADMIT Internal Medicine; ATTEND Internal Medicine
DX: J96.01 Acute respiratory failure with hypoxia (principal); R91.1 Solitary pulmonary nodule; J18.1 Lobar pneumonia, unspecified organism; I10 Essential (primary) hypertension; F17.200 Nicotine dependence, unspecified, uncomplicated; R10.9 Unspecified abdominal pain; E66.9 Obesity, unspecified; I49.3 Ventricular premature depolarization; Z79.899 Other long term (current) drug therapy; Z82.5 Family history of asthma and other chronic lower respiratory diseases; Z82.49 Family history of ischemic heart disease and other diseases of the circulatory system
CPT/HCPCS: 99291; 96375; 96365; 96367; 36415 ×3; 87040; 82553; 82803; 82550; 85025 ×2; 85027; 80048; 80053 ×2; 84484; 83605; 83880; 71045; 71275; 93005; 94799 ×2; 93010; 94660 ×3; 94667 ×2; 94668 ×2; 94640 ×3; G0378 ×4; J1644 ×3; J2920 ×3; J1885 ×2; J2270; J3490 ×3; J7030; J0456; J0696 ×2; J1956 ×3; J7620 ×3

== ENCOUNTER 2019-11-24 20:10 | Emergency (ER) | payer BC ==
--- NOTE | 2019-11-24 20:34 | ER Document Report ---
ED Medical Screen (RME) - General Chief Complaint: Abdominal Pain Stated Complaint: LEFT SIDE PAIN Time Seen by Provider: 11/24/19 20:29 TRAVEL OUTSIDE OF THE [place] IN LAST 30 DAYS: No - HPI Notes: 11/24/19 20:33 Patient is a 54-year-old male with a history of hypertension who presents complaining of left-sided chest pain that he believes is his long that has been on and off since July. Patient states that his last episode was this morning. He feels a pain in the area, without any changes in his breathing. No fever or recent illness otherwise. He is able to eat and drink without difficulty. He is urinating normally and having normal bowel movements. I have treated and performed a rapid initial assessment of this patient. A comprehensive ED assessment and evaluation of the patient, analysis of test results and completion of medical decision making process will be conducted by additional ED providers. PHYSICAL EXAMINATION: GENERAL: Well-appearing, well-nourished and in no acute distress. A&Ox4. Answers questions appropriately. LUNGS: Breath sounds clear to auscultation bilaterally and equal. No wheezes rales or rhonchi. HEART: Regular rate and rhythm without murmurs, rubs, gallops. - Related Data Allergies/Adverse Reactions: No Known Allergies Allergy (Unverified 08/23/19 04:20) Past Medical History - Past Medical History Cardiac Medical History: Reports: Hx Hypertension Renal/ Medical History: Reports: Hx Kidney Stones
--- NOTE | 2019-11-24 21:16 | EKG REPORT ---
SEVERITY:- NORMAL ECG - SINUS RHYTHM : Confirmed by: Ted Bustillo MD 24-Nov-2019 21:15:37
[2019-11-24 21:22] LABS: ABSOLUTE BASOPHILS # (AUTO) 0.1 10^3/uL (0.0-0.2); ABSOLUTE EOSINOPHILS # (AUTO) 0.4 10^3/uL (0.0-0.6); ABSOLUTE LYMPHOCYTES (AUTO) 2.6 10^3/uL (0.5-4.7); ABSOLUTE MONOCYTES (AUTO) 0.5 10^3/uL (0.1-1.4); ABSOLUTE NEUT (AUTO) 4.8 10^3/uL (1.7-8.2); BASOPHILS % (AUTO) 1.2 % (0-2); EOSINOPHILS % (AUTO) 4.5 % (0-6); HEMATOCRIT 42.6 % (37.9-51.0); HEMOGLOBIN 14.6 g/dL (13.5-17.0); LYMPHOCYTES % (AUTO) 31.4 % (13-45); MEAN CORPUSCULAR HEMOGLOBIN 31.2 pg (27.0-33.4); MEAN CORPUSCULAR HGB CONC 34.3 g/dL (32.0-36.0); MEAN CORPUSCULAR VOLUME 91 fl (80-97); MONOCYTES % (AUTO) 6.3 % (3-13); PLATELET COUNT 210 10^3/uL (150-450); RED BLOOD COUNT 4.69 10^6/uL (4.35-5.55); RED CELL DISTRIBUTION WIDTH 14.7 % (11.5-14.0); SEGMENTED NEUTROPHILS % (AUTO) 56.6 % (42-78); TOTAL CELLS COUNTED % (AUTO) 100 %; WHITE BLOOD COUNT 8.4 10^3/uL (4.0-10.5)
--- NOTE | 2019-11-24 21:25 | RADIOLOGY REPORT (SQ) ---
EXAM DESCRIPTION: X-RAY CHEST- One View CLINICAL HISTORY: Chest pain COMPARISON: August 23, 2019 TECHNIQUE: Single view of the chest. FINDINGS: There are no discrete pneumothoraces or pleural effusions. Mild patchy opacities overlie the bilateral lung bases, improved when compared with prior chest x-ray August 23, 2019 The pulmonary vascularity is normal. The cardiomediastinal silhouette is normal in size. No suspicious lytic or blastic osseous lesions are identified. IMPRESSION: Patchy opacities overlying the bilateral lung bases demonstrate interval improvement when compared with prior chest radiograph. However, consider CT for surveillance imaging if clinically indicated given prior recommendation and visualization of nodular lesions.
[2019-11-24 21:51] LABS: ALBUMIN 4.6 g/dL (3.5-5.0); ALKALINE PHOSPHATASE 120 U/L (38-126); ANION GAP 9 (5-19); ASPARTATE AMINO TRANSFERASE 37 U/L (17-59); BILIRUBIN,DIRECT 0.2 mg/dL (0.0-0.4); BILIRUBIN,TOTAL 0.4 mg/dL (0.2-1.3); BLOOD UREA NITROGEN 19 mg/dL (7-20); CALCIUM 9.6 mg/dL (8.4-10.2); CARBON DIOXIDE 30 mmol/L (22-30); CHLORIDE 102 mmol/L (98-107); GLUCOSE 83 mg/dL (75-110); POTASSIUM 4.5 mmol/L (3.6-5.0)
[2019-11-25 01:32] VITALS: BP 131/77
--- NOTE | 2019-11-25 01:57 | ER Document Report ---
ED General - General Chief Complaint: Chest Wall Pain Stated Complaint: LEFT SIDE PAIN Time Seen by Provider: 11/24/19 20:29 TRAVEL OUTSIDE OF THE [place] IN LAST 30 DAYS: No - Related Data Allergies/Adverse Reactions: No Known Allergies Allergy (Unverified 08/23/19 04:20) Home Medications: fish oil, centrium silver, amolodipine Past Medical History - Social History Smoking Status: Current Every Day Smoker Frequency of alcohol use: Social Drug Abuse: None Family History: COPD, Hypertension Patient has suicidal ideation: No Patient has homicidal ideation: No - Past Medical History Cardiac Medical History: Reports: Hx Hypertension Renal/ Medical History: Reports: Hx Kidney Stones Physical Exam - Vital signs Vitals: Temp Pulse Resp BP Pulse Ox 97.8 F 80 16 145/83 H 96 11/24/19 20:34 11/24/19 20:34 11/24/19 20:34 11/24/19 20:34 11/24/19 20:34 - Notes Notes: Patient presents emergency department complaining of pain on left lateral chest wall going on for several weeks Course - Vital Signs Vital signs: Temp Pulse Resp BP Pulse Ox 98.9 F 88 17 131/77 H 96 11/25/19 01:00 11/25/19 01:00 11/25/19 01:00 11/25/19 01:00 11/25/19 01:00 - Laboratory Result Diagrams: 11/24/19 21:05 11/24/19 21:05 Laboratory results interpreted by me: 11/24/19 21:05 RDW 14.7 H Discharge - Discharge Clinical Impression: Lung nodule, Pleuritic chest pain Condition: Good Disposition: HOME, SELF-CARE Additional Instructions: Please review the discharge instructions, they will tell you about your disease/injury and what you need to return to the ED for Return to the ED if you feel worse or can follow-up with your family doctor Your blood pressure was elevated today needs to be rechecked again in 1 to 2 weeks to determine if need to be on medication or have your medications adjusted. Untreated hypertension can cause heart attack stroke and kidney failure Is it is very important to follow-up in the care clinic so they can schedule you for follow-up CT of your chest 1 Forms: Elevated Blood Pressure Referrals: [facility] [Provider Group] - Follow up in 3-5 days
--- NOTE | 2019-11-25 06:39 | ER Document Report ---
ED General - General Chief Complaint: Chest Wall Pain Stated Complaint: LEFT SIDE PAIN Time Seen by Provider: 11/24/19 20:29 Primary Care Provider: [facility] [Provider Group] - Follow up in 3-5 days TRAVEL OUTSIDE OF THE [place] IN LAST 30 DAYS: No - Related Data Allergies/Adverse Reactions: No Known Allergies Allergy (Unverified 08/23/19 04:20) Home Medications: fish oil, centrium silver, amolodipine Past Medical History - Social History Smoking Status: Current Every Day Smoker Frequency of alcohol use: Social Drug Abuse: None Family History: COPD, Hypertension Patient has suicidal ideation: No Patient has homicidal ideation: No - Past Medical History Cardiac Medical History: Reports: Hx Hypertension Renal/ Medical History: Reports: Hx Kidney Stones Physical Exam - Vital signs Vitals: Temp Pulse Resp BP Pulse Ox 97.8 F 80 16 145/83 H 96 11/24/19 20:34 11/24/19 20:34 11/24/19 20:34 11/24/19 20:34 11/24/19 20:34 - Notes Notes: Patient presents emergency department complaining of vomiting pain over the left lateral chest wall and on for several weeks. He only has the pain when he gets up first thing in the morning when he gets starts walking around the pain goes away. Does not have the pain during the day again reports only has the pain first thing in the morning. Pain does not get worse with activity or movement or breathing. Denies any trauma falls or heavy lifting. He denies any recent fevers cough nausea vomiting abdominal pain diarrhea. Appetite is been good there is been no weight loss no night sweats. Patient reports that he was admitted to the hospital in July with bilateral pneumonias had an abnormal CT to follow-up with pulmonary but they were not happy with the plant equipment engineer that they saw THEM, he does report that he was discharged home in antibiotics and finished a course of antibiotics did not have a family doctor to follow-up with. Past medical history sniffing for hypertension no diabetes hypertension or heart disease. Social history smokes does not drink. Review of systems pertinent positives and negatives in HPI otherwise all the systems were reviewed and acutely negative as any recent travel or immobilization PHYSICIAN EXAM -vital signs are noted triage note and note from triage reviewed GENERAL: Well-appearing, well-nourished and in ___acute distress___ HEAD: Atraumatic, normocephalic. EYES: Pupils equal round and reactive to light, extraocular movements intact, s clera anicteric, conjunctiva are normal. ENT: nares patent, oropharynx clear without exudates. Moist mucous membranes. NECK: supple without lymphadenopathy LUNGS: Breath sounds clear to auscultation bilaterally and equal. No wheezes rales or rhonchi. Nontender HEART: Regular rate and rhythm without murmurs ABDOMEN: Soft, nontender, normoactive bowel sounds. EXTREMITIES: No deformity, no edema. Palpable cords NEUROLOGICAL: No focal neurological deficits. Moves all extremities spontaneously and on command. PSYCH: Normal mood, normal affect. SKIN: Warm, Dry, normal turgor, no rashes or lesions noted. BACK-nontender in the midline Differential diagnosis musculoskeletal pain pleurisy scar Course - Re-evaluation Re-evalutation: 11/25/19 06:40 Medical decision making patient presents with pain over the left lateral chest wall before spikes up. Did not have the pain the rest of the day. That he pro bably has some mild scarring of his pneumonia. Does not get the pain during the day does not get with activity he has no fevers or shortness of breath [place] studies were unremarkable as well as his chest x-ray. Discussion with family members regarding the diagnosis and follow-up. They are requesting a CT today. And that there is no indication for this and that they would need follow-up with the plant equipment engineer. They tell me that they saw the plant equipment engineer here in town he did not like him in 1 to see another plant equipment engineer advised him really there are no other plant equipment engineer in [facility] and that they will have to find a plant equipment engineer in another town. Today we contact [facility] to determine the plant equipment engineer try on baster so we can give her referral and told him that they would need to do that th emselves. I strongly suggested they make an appointment to follow-up in the care center 3 days to continue his care they can certainly arrange for a CT advised him I cannot schedule an outpatient CT and do not feel that a CT is indicated at this time from the emergency department family requested a referral to a plant equipment engineer advised him that righted on a prescription. However more than likely they are going to request a referral from the family doctor and emphasized need for follow-up in the care clinic to coordinate his care and recheck his blood pressure At this time there is no indication for admission. I have discussed the findings with patient/family with return precautions and follow-up recommendations. Verbal discharge instructions given at the bedside and opportunity for questions given. Medication warnings were given if indicated. Patient is in agreement with this plan and has verbalized understanding of return precautions and the need for primary care follow-up as directed.. 11/25/19 06:59 - Vital Signs Vital signs: Temp Pulse Resp BP Pulse Ox 98.1 F 66 17 131/77 H 98 11/25/19 02:00 11/25/19 02:00 11/25/19 02:00 11/25/19 02:00 11/25/19 02:00 - Laboratory Result Diagrams: 11/24/19 21:05 11/24/19 21:05 Laboratory results interpreted by me: 11/24/19 21:05 RDW 14.7 H - Diagnostic Test Radiology reviewed: Reports reviewed Radiology results interpreted by me: 11/25/19 06:39 I did review her chest x-ray and previous CT. Chest x-ray shows resolution of the lower lobe infiltrates there is lobar atelectasis on the left base no nodule found on CT is not visible on chest x-ray - EKG Interpretation by Me Additional EKG results interpreted by me: 11/25/19 06:30 EKG shows a normal sinus rhythm with normal axis and QRS and occasional PVC and some minimal nonspecific ST wave changes 11/25/19 06:39 Is unchanged from previous Discharge - Discharge Clinical Impression: Lung nodule, Pleuritic chest pain Condition: Good Disposition: HOME, SELF-CARE Additional Instructions: Please review the discharge instructions, they will tell you about your disease/injury and what you need to return to the ED for Return to the ED if you feel worse or can follow-up with your family doctor Your blood pressure was elevated today needs to be rechecked again in 1 to 2 weeks to determine if need to be on medication or have your medications adjusted. Untreated hypertension can cause heart attack stroke and kidney failure Is it is very important to follow-up in the care clinic so they can schedule you for follow-up CT of your chest 1 Forms: Elevated Blood Pressure Referrals: [facility] [Provider Group] - Follow up in 3-5 days
== END 2019-11-25 02:01 | disposition home or self-care (01) ==
LOC: ER 20:10
DX: R91.1 Solitary pulmonary nodule (principal); R07.81 Pleurodynia; R11.10 Vomiting, unspecified; F17.200 Nicotine dependence, unspecified, uncomplicated; I10 Essential (primary) hypertension
CPT/HCPCS: 36415; 71046; 80053; 84484; 85025; 93005; 93010; 99284